=== PATIENT | female | born 1980 | race Caucasian/White ===

== ENCOUNTER 2017-10-10 09:51 | Emergency (ER) | payer SELFPAY | END 2017-10-10 11:40 | disposition home or self-care (01) | LOC: ERS 09:51 | DX: J10.1 Influenza due to other identified influenza virus with other respiratory manifestations (principal); F41.9 Anxiety disorder, unspecified; F32.9 Major depressive disorder, single episode, unspecified; Z85.41 Personal history of malignant neoplasm of cervix uteri | CPT/HCPCS: 87804; 99284 ==

== ENCOUNTER 2018-05-24 16:09 | Emergency (ER) | payer SELFPAY ==
[2018-05-24] MEDS ORDERED: Acetaminophen 500 MG TAB ONE (16:37)
[2018-05-24] MEDS ORDERED: Dexamethasone 4 mg/ml Vial ONE (16:37)
== END 2018-05-24 16:50 | disposition home or self-care (01) ==
LOC: ERS 16:09
DX: B34.9 Viral infection, unspecified (principal); I10 Essential (primary) hypertension; D64.9 Anemia, unspecified; F41.9 Anxiety disorder, unspecified; F32.9 Major depressive disorder, single episode, unspecified
CPT/HCPCS: 99282; J1100